=== PATIENT | male | born 1990 | race Caucasian/White ===

== ENCOUNTER 2016-08-01 12:55 | Emergency (ER) ==
[2016-08-01] MEDS ORDERED: TORADOL IM ONE (14:22)
[2016-08-01] MEDS ORDERED: DECADRON IM ONE (14:22)
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
[2016-08-01 14:53] VITALS: BP 130/68
== END 2016-08-01 14:40 | disposition home or self-care (01) ==
LOC: P.ED 12:55
DX: J01.11 Acute recurrent frontal sinusitis (principal); J34.89 Other specified disorders of nose and nasal sinuses; F17.210 Nicotine dependence, cigarettes, uncomplicated; Z71.6 Tobacco abuse counseling
CPT/HCPCS: 96372; J1100; J1885